=== PATIENT | male | born 1945 | race Caucasian/White ===

== ENCOUNTER 2022-04-20 13:15 | Day surgery (SDC) | payer MEDICARE, BC, SELFPAY ==
[2022-04-20] MEDS: TETRACAINE 0.5% OPHTH 1 DROP EYE-RIGHT ×2 (13:44→16:24)
[2022-04-20] MEDS: KETOROLAC OPHTH 0.5% 1 DROP EYE-RIGHT ×3 (13:45→14:00)
[2022-04-20] MEDS: SODIUM CHLORIDE 0.9 % (FLUSH) 10 ML SYRINGE IVF (13:55)
[2022-04-20 14:02] VITALS: BP 122/74; PULSE 76; RESP 16; TEMP 36.8; O2SAT 96
[2022-04-20 14:09] VITALS: BMI 32.3
--- NOTE | 2022-04-20 15:02 | W.ANESCHARGE ---
Anesthesia Charges Start Date/Time Anesthesia Start Date: 04/20/22 Stop Date/Time Anesthesia Stop Date: 04/20/22 Summary Emergency: No Extremes of Age: Over 68-CPT [id number]
[2022-04-20] MEDS: BALANCED SALT IRRIG SOLN 15 ML EYE-RIGHT (16:24)
[2022-04-20] MEDS: BRIMONIDINE TARTRATE 0.2% OPHTH 1 DROP EYE-RIGHT (16:24)
--- NOTE | 2022-04-20 16:41 | PM.PROC ---
Procedure Note Date Seen: 04/20/22 Will [facility] bill your pro fee for this procedure?: No Procedure Description: Right pupil dilated 1% Mydriacyl 2.5% phenylephrine Vigamox Ocufen 2 OR time-out identified patient identified a procedure identify implant sterile prep and drape lid speculum 12:00. paracentesis local injected viscoelastic injected I entered temporally keratome malyugan ring placed 3 mm pupil continuous tear capsulotomy hydro dissected local the emulsified in capsule cortex removed implant 24.0 ring removed viscoelastic removed incision hydrated topical brimonidine secure discharged Surgeon: Hill Doll MD
[2022-04-20 16:45] VITALS: BP 144/95; PULSE 64; RESP 16; TEMP 36.7; O2SAT 94
--- NOTE | 2022-04-20 16:45 | W.ANESCHARGE ---
Anesthesia Charges Start Date/Time Anesthesia Start Date: 04/20/22 Anesthesia Start Time: 16:14 Stop Date/Time Anesthesia Stop Date: 04/20/22 Anesthesia Stop Time: 16:45 Summary Emergency: No Extremes of Age: Over 68-CPT [id number]
== END 2022-04-20 17:07 | disposition home or self-care (01) ==
PROVIDERS: PCP Family Medicine; Visit Provider Ophthalmology
PROC: (CPT 66984; principal; 2022-04-20 14:30)
DX: H25.811 Combined forms of age-related cataract, right eye (principal)
CPT/HCPCS: 66984; 00142; 99100; A9270; J3010; S0020; V2632

== ENCOUNTER 2022-06-03 11:00 | Outpatient (RCR) | payer MEDICARE, BC, SELFPAY ==
[2022-02-11 10:03] LABS: Basophils Percent Auto 0.1 % (0.0-3.0); Eosinophils Percent Auto 0.3 % (0.0-7.0); Hemoglobin* 16.3 gm/dL (13.5-17.5); Immature Granulocytes Abs Auto 0.07 K/uL (0.00-0.30); Lymphocytes Percent Auto 87.5 % (20-44); Mean Corpuscular HGB Conc 33 gm/dL (32-36); Mean Corpuscular Hemoglobin 28 pg (26-34); Mean Corpuscular Volume 87 fL (80-100); Monocytes Percent Auto 1.9 % (0.0-11.0); Platelet Count* 100 K/uL (140-440); RDW Coefficient of Variation % 13.8 % (11.5-15.5); Red Blood Count 5.73 m/uL (4.30-5.90)
[2022-02-11 10:14] LABS: Albumin* 4.9 g/dL (3.3-5.0); Chloride* 104 mmol/L (96-114)
[2022-02-11 10:15] LABS: Potassium* 4.6 mmol/L (3.6-5.1); Sodium* 140 mmol/L (135-149)
[2022-02-11 10:17] LABS: Alkaline Phosphatase* 103 U/L (40-150); Aspartate Amino Transferase* 27 U/L (12-35); Bilirubin Total* 0.8 mg/dL (0.1-1.5); Carbon Dioxide* 25 mmol/L (20-32); Creatinine* 1.8 mg/dL (0.5-1.5); Estimated Glomerular Filt Rate 38 ml/min
[2022-02-11 10:18] LABS: Alanine Aminotransferase* 23 U/L (4-50); Blood Urea Nitrogen* 37 mg/dL (7-30); Glucose* 100 mg/dL (60-115); Lactate Dehydrogenase* 475 U/L (313-618)
[2022-02-11 11:24] LABS: Slide Review Reflex Yes; White Blood Count* 37.97 K/uL (4.50-11.00)
[2022-02-11 23:20] LABS: Slide Review Acceptable Review (Acceptable)
[2022-06-03 11:19] LABS: Basophils Percent Auto 0.1 % (0.0-3.0); Eosinophils Percent Auto 0.3 % (0.0-7.0); Hematocrit 50.4 % (37.0-53.0); Hemoglobin* 16.3 gm/dL (13.5-17.5); Immature Granulocytes Pct Auto 0.1 %; Lymphocytes Percent Auto 88.1 % (20-44); Mean Corpuscular HGB Conc 32 gm/dL (32-36); Mean Corpuscular Hemoglobin 29 pg (26-34); Mean Corpuscular Volume 89 fL (80-100); Monocytes Percent Auto 2.2 % (0.0-11.0); Neutrophils Percent Auto 9.2 % (42.0-72.0); Platelet Count* 101 K/uL (140-440); RDW Coefficient of Variation % 13.3 % (11.5-15.5); Red Blood Count 5.68 m/uL (4.30-5.90)
[2022-06-03 11:42] LABS: Slide Review Reflex Yes; White Blood Count* 42.24 K/uL (4.50-11.00)
[2022-06-03 11:43] LABS: Slide Review Acceptable Review (Acceptable)
[2022-06-03 12:10] LABS: Albumin* 4.8 g/dL (3.3-5.0); Chloride* 107 mmol/L (96-114)
[2022-06-03 12:11] LABS: Potassium* 4.3 mmol/L (3.6-5.1); Sodium* 142 mmol/L (135-149)
[2022-06-03 12:13] LABS: Aspartate Amino Transferase* 32 U/L (12-35); Bilirubin Total* 0.8 mg/dL (0.1-1.5); Carbon Dioxide* 27 mmol/L (20-32); Creatinine* 1.6 mg/dL (0.5-1.5); Estimated Glomerular Filt Rate 44 ml/min; Total Protein* 6.9 g/dL (6.0-8.3)
[2022-06-03 12:14] LABS: Alanine Aminotransferase* 27 U/L (4-50); Alkaline Phosphatase* 93 U/L (40-150); Blood Urea Nitrogen* 34 mg/dL (7-30); Calcium* 10.3 mg/dL (8.4-10.6); Glucose* 76 mg/dL (60-115); Lactate Dehydrogenase* 219 U/L (120-246)
--- NOTE | 2022-06-10 15:10 | ONC.NURNOTE ---
left cbc results on patients answering machine. left our number if he needs to make an apt or has any question.
== END 2022-08-10 23:59 | disposition home or self-care (01) ==
LOC: CCIC 11:00
PROVIDERS: PCP Family Medicine; Referring Provider Family Medicine; Visit Provider Internal Medicine Hematology & Oncology
DX: C91.10 Chronic lymphocytic leukemia of B-cell type not having achieved remission (principal)
CPT/HCPCS: 36415; 80053; 83615; 85025; 99212; 99214

== ENCOUNTER 2023-02-21 10:00 | Outpatient (RCR) | payer MEDICARE, BC, SELFPAY ==
[2022-08-29 11:26] LABS: Basophils Percent Auto 0.1 % (0.0-3.0); Eosinophils Percent Auto 0.3 % (0.0-7.0); Hematocrit 51.4 % (37.0-53.0); Hemoglobin* 16.6 gm/dL (13.5-17.5); Immature Granulocytes Pct Auto 0.1 %; Mean Corpuscular HGB Conc 32 gm/dL (32-36); Mean Corpuscular Hemoglobin 28 pg (26-34); Mean Corpuscular Volume 88 fL (80-100); Monocytes Percent Auto 1.9 % (0.0-11.0); Neutrophils Percent Auto 8.6 % (42.0-72.0); Platelet Count* 110 K/uL (140-440); RDW Coefficient of Variation % 13.6 % (11.5-15.5); Red Blood Count 5.84 m/uL (4.30-5.90)
[2022-08-29 11:43] LABS: Albumin* 4.8 g/dL (3.3-5.0)
[2022-08-29 11:44] LABS: Chloride* 105 mmol/L (96-114); Potassium* 4.6 mmol/L (3.6-5.1); Sodium* 140 mmol/L (135-149)
[2022-08-29 11:46] LABS: Aspartate Amino Transferase* 29 U/L (12-35); Carbon Dioxide* 27 mmol/L (20-32); Creatinine* 1.7 mg/dL (0.5-1.5); Estimated Glomerular Filt Rate 41 ml/min; Total Protein* 7.3 g/dL (6.0-8.3)
[2022-08-29 11:47] LABS: Alanine Aminotransferase* 28 U/L (4-50); Alkaline Phosphatase* 106 U/L (40-150); Blood Urea Nitrogen* 37 mg/dL (7-30); Glucose* 94 mg/dL (60-115); Lactate Dehydrogenase* 220 U/L (120-246)
[2022-08-29 11:48] LABS: White Blood Count* 45.29 K/uL (4.50-11.00)
[2022-08-29 14:01] LABS: Slide Review Reflex Yes
[2022-08-29 14:02] LABS: Slide Review Acceptable Review (Acceptable)
[2022-08-30 20:53] LABS: Kappa Qnt Free Light Chains 133.22 mg/L (3.30-19.40); Kappa-Lambda Qt FLC W/ Ratio 13.55 (0.26-1.65); Lambda Qnt Free Light Chains 9.83 mg/L (5.71-26.30)
[2022-09-07 18:24] LABS: Beta-2-Microglob Serum/Plasma 5.2 mg/L (<=3.0)
[2022-09-09 02:41] LABS: Albumin 4.41 g/dL (3.75-5.01); Alpha 1 Globulin 0.33 g/dL (0.19-0.46); Alpha 2 Globulin 0.62 g/dL (0.48-1.05); Total Protein, Serum 6.3 g/dL (6.3-8.2)
--- NOTE | 2022-10-25 15:05 | ONC.NURNOTE ---
New medication start teaching completed on 10/19/22 (late entry) discussed process of obtaining medication and options for copay support if needed reviewed new treatment binder and medication information- possible side effects, after hours management, administration RX will need to be signed by Dr Jensen and then faxed to [facility]
--- NOTE | 2022-10-25 15:08 | ONC.NURNOTE ---
Addendum entered by Glenis Gilliam RN 10/26/22 11:24: PA APPROVAL FOR DAMARIS CRUZ # [id number] 10/26/22-04/24/23 PA from Jayne Original Note: zanubrutinib new start screen writer phoned Haylee in follow up of RX faxed on 10/20/22 Traveling Operator was told that [facility] can not fill this medication and that the RX will need to be sent to [facility] or [id number] Unfortunately Haylee did not call this office with follow up of need to transfer RX Rx faxed to [facility]
--- NOTE | 2022-10-26 11:24 | ONC.NURNOTE ---
[facility] Copay for Brukinsa is $3268/month [facility] will be contacting Aj about possible financial qualification for copay librado program
--- NOTE | 2022-10-31 09:37 | ONC.NURNOTE ---
Message left last week and again today for patient to call about next steps prior to start of Brukinsa -enrollment in a copay assistance needed either through a librado, or through the line cook -EKG thru PCP -follow up lab apps needed -provider follow up -offer SS consult
--- NOTE | 2022-10-31 14:11 | ONC.NURNOTE ---
Enrolled in Leukemia[employer]ymphoma [employer] Copay Luc 10/02/22-11/01/23 $10,000
--- NOTE | 2022-11-01 12:02 | ONC.NURNOTE ---
Copay librado through [facility] paperwork completed, signed by Mikey and faxed to [facility] at [phone]
--- NOTE | 2022-11-03 14:48 | ONC.NURNOTE ---
EKG reviewed by Dr Jensen with recommendation for cardiology consult due to EKG changes from previous done in 2019 and 2015
--- NOTE | 2022-11-04 11:55 | ONC.NURNOTE ---
Lab and MD appts set up for new start zanubrutinib patient notified of need for cardiology consult to review noted EKG changes play writer will contact [facility] [place] discussed plan to taking zanubrutinib questions addressed discussed drug interactions with amoxicillin avoiding high dose supplements
--- NOTE | 2022-11-07 13:23 | ONC.NURNOTE ---
Cardiology Consult via [facility] Dr Scott Mccord 12/01/22 at 1:30 with 1:15 arrival [address] [place] [address] Records faxed to [phone] patient called with this appt information
[2022-11-08 11:45] LABS: Basophils Percent Auto 0.1 % (0.0-3.0); Eosinophils Percent Auto 0.4 % (0.0-7.0); Hematocrit 45.5 % (37.0-53.0); Hemoglobin* 14.8 gm/dL (13.5-17.5); Immature Granulocytes Pct Auto 0.1 %; Lymphocytes Percent Auto 89.7 % (20-44); Mean Corpuscular HGB Conc 33 gm/dL (32-36); Mean Corpuscular Hemoglobin 29 pg (26-34); Mean Corpuscular Volume 88 fL (80-100); Monocytes Percent Auto 1.5 % (0.0-11.0); Neutrophils Percent Auto 8.2 % (42.0-72.0); Platelet Count* 101 K/uL (140-440); RDW Coefficient of Variation % 13.4 % (11.5-15.5); Red Blood Count 5.17 m/uL (4.30-5.90)
[2022-11-08 11:57] LABS: Albumin* 4.3 g/dL (3.3-5.0); Chloride* 106 mmol/L (96-114)
[2022-11-08 11:58] LABS: Potassium* 4.3 mmol/L (3.6-5.1); Sodium* 136 mmol/L (135-149)
[2022-11-08 12:00] LABS: Alkaline Phosphatase* 87 U/L (40-150); Aspartate Amino Transferase* 31 U/L (12-35); Bilirubin Total* 0.8 mg/dL (0.1-1.5); Blood Urea Nitrogen* 41 mg/dL (7-30); Carbon Dioxide* 28 mmol/L (20-32); Creatinine* 1.9 mg/dL (0.5-1.5); Estimated Glomerular Filt Rate 35 ml/min; Total Protein* 6.4 g/dL (6.0-8.3)
[2022-11-08 12:01] LABS: Alanine Aminotransferase* 20 U/L (4-50); Calcium* 10.2 mg/dL (8.4-10.6); Glucose* 90 mg/dL (60-115)
[2022-11-08 12:02] LABS: Slide Review Reflex Yes; White Blood Count* 56.84 K/uL (4.50-11.00)
[2022-11-08 12:03] LABS: Slide Review Acceptable Review (Acceptable)
--- NOTE | 2022-11-23 13:17 | ONC.NURNOTE ---
Reports sinus drainage and productive cough with clear phlegm, enough that he sleeps on multiple pillows and then is up around 4 am due to cough he reports increasing fatigue will report these symptoms to Dr Mikey Rocha is using mucinex for the congestion expert medical writer checked for any drug interaction per Aj's request Continues on Zanubrutinib BID RTC 12/15/22
[2022-11-23 13:20] LABS: Eosinophils Percent Auto 0.2 % (0.0-7.0); Hematocrit 50.4 % (37.0-53.0); Hemoglobin* 15.7 gm/dL (13.5-17.5); Immature Granulocytes Pct Auto 0.1 %; Lymphocytes Percent Auto 94.8 % (20-44); Mean Corpuscular HGB Conc 31 gm/dL (32-36); Mean Corpuscular Hemoglobin 28 pg (26-34); Mean Corpuscular Volume 90 fL (80-100); Monocytes Percent Auto 0.6 % (0.0-11.0); Neutrophils Percent Auto 4.3 % (42.0-72.0); Platelet Count* 128 K/uL (140-440); RDW Coefficient of Variation % 15.2 % (11.5-15.5); Red Blood Count 5.58 m/uL (4.30-5.90)
[2022-11-23 13:34] LABS: Albumin* 4.9 g/dL (3.3-5.0)
[2022-11-23 13:35] LABS: Chloride* 105 mmol/L (96-114); Potassium* 4.4 mmol/L (3.6-5.1); Sodium* 140 mmol/L (135-149)
[2022-11-23 13:37] LABS: Alkaline Phosphatase* 90 U/L (40-150); Aspartate Amino Transferase* 25 U/L (12-35); Bilirubin Total* 0.9 mg/dL (0.1-1.5); Blood Urea Nitrogen* 36 mg/dL (7-30); Carbon Dioxide* 23 mmol/L (20-32); Creatinine* 1.7 mg/dL (0.5-1.5); Estimated Glomerular Filt Rate 41 ml/min; Total Protein* 7.4 g/dL (6.0-8.3)
[2022-11-23 13:38] LABS: Alanine Aminotransferase* 20 U/L (4-50); Calcium* 10.4 mg/dL (8.4-10.6); Glucose* 106 mg/dL (60-115); Lactate Dehydrogenase* 204 U/L (120-246)
[2022-11-23 13:49] LABS: Slide Review Reflex Yes; White Blood Count* 130.68 K/uL (4.50-11.00)
[2022-11-23 13:52] LABS: Slide Review Acceptable Review (Acceptable)
--- NOTE | 2022-11-25 09:46 | ONC.NURNOTE ---
Lab results reviewed by Dr Jensen-lymphocytosis not unexpected after starting TKI patient/ eassured that this is not a concerning change will continue Q 2 week lab RTC in 3 weeks
--- NOTE | 2022-12-07 09:40 | ONC.NURNOTE ---
Patient called to return navigator phone call from yesterday. No note left, so patient was told that he will be able to talk with her tomorrow when she is in. Patient has an appointment at 10:00 tomorrow for labs.
[2022-12-08 10:12] LABS: Eosinophils Percent Auto 0.2 % (0.0-7.0); Hematocrit 46.3 % (37.0-53.0); Hemoglobin* 14.4 gm/dL (13.5-17.5); Immature Granulocytes Pct Auto 0.1 %; Lymphocytes Percent Auto 93.5 % (20-44); Mean Corpuscular HGB Conc 31 gm/dL (32-36); Mean Corpuscular Hemoglobin 29 pg (26-34); Mean Corpuscular Volume 92 fL (80-100); Monocytes Percent Auto 0.6 % (0.0-11.0); Neutrophils Percent Auto 5.6 % (42.0-72.0); Platelet Count* 141 K/uL (140-440); RDW Coefficient of Variation % 15.6 % (11.5-15.5); Red Blood Count 5.06 m/uL (4.30-5.90)
[2022-12-08 10:39] LABS: White Blood Count* 130.37 K/uL (4.50-11.00)
[2022-12-08 10:40] LABS: Slide Review Reflex Yes
[2022-12-08 10:42] LABS: Slide Review Acceptable Review (Acceptable)
[2022-12-21 10:51] LABS: Eosinophils Percent Auto 0.3 % (0.0-7.0); Hemoglobin* 13.8 gm/dL (13.5-17.5); Immature Granulocytes Pct Auto 0.1 %; Lymphocytes Percent Auto 92.4 % (20-44); Mean Corpuscular HGB Conc 31 gm/dL (32-36); Mean Corpuscular Hemoglobin 29 pg (26-34); Mean Corpuscular Volume 91 fL (80-100); Monocytes Percent Auto 0.9 % (0.0-11.0); Neutrophils Percent Auto 6.3 % (42.0-72.0); Platelet Count* 134 K/uL (140-440); RDW Coefficient of Variation % 15.2 % (11.5-15.5); Red Blood Count 4.85 m/uL (4.30-5.90)
[2022-12-21 11:01] LABS: Albumin* 4.2 g/dL (3.3-5.0); Chloride* 108 mmol/L (96-114); Sodium* 137 mmol/L (135-149)
[2022-12-21 11:03] LABS: Bilirubin Total* 0.7 mg/dL (0.1-1.5); Creatinine* 1.6 mg/dL (0.5-1.5); Estimated Glomerular Filt Rate 44 ml/min
[2022-12-21 11:04] LABS: Alanine Aminotransferase* 22 U/L (4-50); Alkaline Phosphatase* 73 U/L (40-150); Aspartate Amino Transferase* 28 U/L (12-35); Blood Urea Nitrogen* 35 mg/dL (7-30); Calcium* 9.6 mg/dL (8.4-10.6); Carbon Dioxide* 20 mmol/L (20-32); Glucose* 114 mg/dL (60-115); Total Protein* 6.2 g/dL (6.0-8.3)
[2022-12-21 11:27] LABS: Slide Review Reflex Yes; White Blood Count* 92.83 K/uL (4.50-11.00)
[2022-12-21 11:37] LABS: Slide Review Acceptable Review (Acceptable)
[2022-12-24 11:32] LABS: Albumin 4.07 g/dL (3.75-5.01); Alpha 2 Globulin 0.63 g/dL (0.48-1.05); Immunofixation IFE Done; Immunoglobulin A 16 mg/dL (68-408); Immunoglobulin G 240 mg/dL (768-1632); Immunoglobulin M 20 mg/dL (35-263); Kappa Qnt Free Light Chains 41.73 mg/L (3.30-19.40); Kappa/Lambda Light Chain Ratio 3.67 (0.26-1.65); Lambda Qnt Free Light Chains 11.38 mg/L (5.71-26.30); Total Protein, Serum 5.9 g/dL (6.3-8.2)
[2023-01-04 10:29] LABS: Eosinophils Percent Auto 0.2 % (0.0-7.0); Hematocrit 46.1 % (37.0-53.0); Hemoglobin* 14.6 gm/dL (13.5-17.5); Immature Granulocytes Pct Auto 0.1 %; Lymphocytes Percent Auto 92.8 % (20-44); Mean Corpuscular HGB Conc 32 gm/dL (32-36); Mean Corpuscular Hemoglobin 29 pg (26-34); Mean Corpuscular Volume 90 fL (80-100); Neutrophils Percent Auto 5.9 % (42.0-72.0); Platelet Count* 153 K/uL (140-440); Red Blood Count 5.12 m/uL (4.30-5.90)
[2023-01-04 10:40] LABS: Albumin* 4.6 g/dL (3.3-5.0); Chloride* 102 mmol/L (96-114); Potassium* 4.4 mmol/L (3.6-5.1); Sodium* 138 mmol/L (135-149)
[2023-01-04 10:42] LABS: Creatinine* 1.8 mg/dL (0.5-1.5); Estimated Glomerular Filt Rate 38 ml/min
[2023-01-04 10:43] LABS: Alanine Aminotransferase* 22 U/L (4-50); Alkaline Phosphatase* 82 U/L (40-150); Aspartate Amino Transferase* 27 U/L (12-35); Blood Urea Nitrogen* 40 mg/dL (7-30); Calcium* 10.4 mg/dL (8.4-10.6); Carbon Dioxide* 27 mmol/L (20-32); Glucose* 109 mg/dL (60-115); Total Protein* 6.8 g/dL (6.0-8.3)
[2023-01-04 11:09] LABS: White Blood Count* 78.74 K/uL (4.50-11.00)
[2023-01-04 11:10] LABS: Slide Review Reflex Yes
[2023-01-04 11:11] LABS: Slide Review Acceptable Review (Acceptable)
--- NOTE | 2023-01-04 15:28 | ONC.NURNOTE ---
Lab results reviewed by Dr Jensen and called to Iris Rocha reports sleeping better at night, cough has improved reports lots of fatigue and that Aj takes a 3 hour nap during the day
[2023-01-19 08:52] LABS: Eosinophils Percent Auto 0.4 % (0.0-7.0); Hematocrit 47.3 % (37.0-53.0); Hemoglobin* 14.7 gm/dL (13.5-17.5); Immature Granulocytes Pct Auto 0.2 %; Lymphocytes Percent Auto 87.9 % (20-44); Mean Corpuscular HGB Conc 31 gm/dL (32-36); Mean Corpuscular Hemoglobin 29 pg (26-34); Mean Corpuscular Volume 92 fL (80-100); Monocytes Percent Auto 1.4 % (0.0-11.0); Neutrophils Percent Auto 10.1 % (42.0-72.0); Platelet Count* 147 K/uL (140-440); RDW Coefficient of Variation % 14.4 % (11.5-15.5); Red Blood Count 5.13 m/uL (4.30-5.90)
[2023-01-19 09:09] LABS: Albumin* 4.5 g/dL (3.3-5.0); Chloride* 104 mmol/L (96-114)
[2023-01-19 09:10] LABS: Potassium* 4.6 mmol/L (3.6-5.1); Sodium* 139 mmol/L (135-149)
[2023-01-19 09:12] LABS: Alkaline Phosphatase* 86 U/L (40-150); Anion Gap 9 mEq/L (7-15); Aspartate Amino Transferase* 27 U/L (12-35); Bilirubin Total* 0.8 mg/dL (0.1-1.5); Blood Urea Nitrogen* 46 mg/dL (7-30); Carbon Dioxide* 26 mmol/L (20-32); Creatinine* 1.6 mg/dL (0.5-1.5); Estimated Glomerular Filt Rate 44 ml/min; Glucose* 100 mg/dL (60-115); Total Protein* 6.9 g/dL (6.0-8.3)
[2023-01-19 09:13] LABS: Alanine Aminotransferase* 22 U/L (4-50); Calcium* 10.9 mg/dL (8.4-10.6); Lactate Dehydrogenase* 219 U/L (120-246)
[2023-01-19 09:41] LABS: Slide Review Reflex Yes; White Blood Count* 68.45 K/uL (4.50-11.00)
[2023-01-19 09:53] LABS: Slide Review Acceptable Review (Acceptable)
--- NOTE | 2023-01-20 10:38 | ONC.NURNOTE ---
Calcium 10.9 reviewed with alex following plan discussed with Aj come in early on appt day for repeat lab stay well hydrated- 8-10 glasses of water/juice avoid dairy this weekend, no tums, or calcium supplements-Aj states that he is not currently taking oral calcium walk and stay active denies constipation has been making protein shakes with yogurt and will take out the yogurt
[2023-01-20 16:59] LABS: Kappa Qnt Free Light Chains 30.96 mg/L (3.30-19.40); Kappa-Lambda Qt FLC W/ Ratio 2.78 (0.26-1.65); Lambda Qnt Free Light Chains 11.12 mg/L (5.71-26.30)
[2023-01-26 08:14] LABS: Ionized Calcium* 1.21 mmol/L (1.11-1.30)
[2023-01-26 08:32] LABS: Calcium* 10.1 mg/dL (8.4-10.6); Creatinine* 1.8 mg/dL (0.5-1.5); Estimated Glomerular Filt Rate 38 ml/min
[2023-02-21 10:09] LABS: Basophils Percent Auto 0.1 % (0.0-3.0); Eosinophils Percent Auto 0.4 % (0.0-7.0); Hematocrit 45.4 % (37.0-53.0); Hemoglobin* 14.8 gm/dL (13.5-17.5); Immature Granulocytes Pct Auto 0.2 %; Lymphocytes Percent Auto 84.1 % (20-44); Mean Corpuscular HGB Conc 33 gm/dL (32-36); Mean Corpuscular Hemoglobin 29 pg (26-34); Mean Corpuscular Volume 90 fL (80-100); Monocytes Percent Auto 1.5 % (0.0-11.0); Neutrophils Percent Auto 13.7 % (42.0-72.0); Platelet Count* 130 K/uL (140-440); RDW Coefficient of Variation % 13.8 % (11.5-15.5); Red Blood Count 5.03 m/uL (4.30-5.90)
[2023-02-21 10:24] LABS: Albumin* 4.4 g/dL (3.3-5.0); Chloride* 104 mmol/L (96-114)
[2023-02-21 10:25] LABS: Potassium* 4.3 mmol/L (3.6-5.1); Sodium* 138 mmol/L (135-149)
[2023-02-21 10:27] LABS: Alanine Aminotransferase* 22 U/L (4-50); Alkaline Phosphatase* 80 U/L (40-150); Anion Gap 10 mEq/L (7-15); Aspartate Amino Transferase* 47 U/L (12-35); Bilirubin Total* 0.9 mg/dL (0.1-1.5); Blood Urea Nitrogen* 40 mg/dL (7-30); Carbon Dioxide* 24 mmol/L (20-32); Creatinine* 1.8 mg/dL (0.5-1.5); Estimated Glomerular Filt Rate 38 ml/min; Glucose* 85 mg/dL (60-115); Total Protein* 6.6 g/dL (6.0-8.3)
[2023-02-21 10:28] LABS: Calcium* 9.8 mg/dL (8.4-10.6)
[2023-02-21 10:35] LABS: White Blood Count* 38.41 K/uL (4.50-11.00)
[2023-02-21 10:36] LABS: Slide Review Acceptable Review (Acceptable); Slide Review Reflex Yes
== END 2023-02-25 23:59 | disposition home or self-care (01) ==
LOC: CCIC 10:00
PROVIDERS: Clinical Nurse Specialist; PCP Family Medicine; Referring Provider Family Medicine; Visit Provider Internal Medicine Hematology & Oncology
DX: C91.10 Chronic lymphocytic leukemia of B-cell type not having achieved remission (principal)
CPT/HCPCS: 36415; 80053; 82232; 82310; 82330; 82565; 82784; 83520; 83615; 84155; 84165; 85025; 86334; 99212; 99213; 99214; 99215

== ENCOUNTER 2023-07-31 11:03 | Emergency (ER) | payer MEDICARE, BC, SELFPAY ==
[2023-07-31] VITALS (10 sets, daily range): BP systolic 123; BP diastolic 80; PULSE 83–109; RESP 16; TEMP 37.1; O2SAT 91–97; BMI 27.8
--- NOTE | 2023-07-31 11:08 | ED_ITS ---
HPI - General Adult General Time Seen by Provider: 11:10 Date Seen: 07/31/23 Chief complaint: Cough Stated complaint: Pneumonia Time Seen by Provider: 07/31/23 11:05 Source: patient, RN notes reviewed and old records reviewed Mode of arrival: ambulatory Limitations: no limitations History of Present Illness HPI narrative: 77-year-old male who comes in today with a cough and fatigue. Patient has had ongoing cough for quite a while related to chemotherapy but increased coughing in the last 4 days along with chills, some shortness of breath, and fatigue. Denies fever, nausea, vomiting, chest pain, diarrhea. Patient was on Augmentin at the beginning of last month. Related Data Home Medications Medication Instructions Recorded Confirmed lisinopril 10 mg tablet 10 mg PO QDAY 02/22/22 07/31/23 zinc gluconate 50 mg tablet 50 mg PO DAILY 04/19/22 07/31/23 atorvastatin 20 mg tablet 20 mg PO QHS 09/06/22 07/31/23 glucosamine-chondroitin 500 mg-400 1 cap PO QDAY 09/06/22 06/28/23 mg capsule Previous Rx's Medication Instructions Recorded amoxicillin 500 mg capsule 2,000 mg (4 x 500 mg) PO ONCE #4 01/06/23 caps codeine 10 mg-guaifenesin 100 mg/5 5 - 10 ml PO BID PRN cough #120 mL 06/26/23 mL oral liquid (Virtussin AC) zanubrutinib 80 mg capsule 80 mg PO QDAY #60 caps 06/28/23 albuterol sulfate 90 mcg/actuation 2 puff inhalation Q4H PRN 07/31/23 aerosol inhaler shortness of breath or wheezing #8.5 grams levofloxacin 750 mg tablet 750 mg PO DAILY 5 days #5 tabs 07/31/23 prednisone 20 mg tablet 20 mg PO BID #10 tabs 07/31/23 Allergies Allergy/AdvReac Type Severity Reaction Status Date / Time No Known Drug Allergies Allergy Verified 07/31/23 11:17 [facility] Medical History (Updated 07/31/23 @ 14:00 by Mark Gallegos MD) Stage 3b chronic kidney disease ?N18.32 - Chronic kidney disease, stage 3b (ICD-10) Essential hypertension ?I10 - Essential (primary) hypertension (ICD-10) Pneumonia ?J18.9 - Pneumonia, unspecified organism (ICD-10) CLL (chronic lymphocytic leukemia) (~2003) ?C91.10 - Chronic lymphocytic leukemia of B-cell type not having achieved remission (ICD-10) Surgical History (Updated 04/19/22 @ 10:07 by Patricia Nunez RN) Hx of total hip arthroplasty ?Z96.649 - Presence of unspecified artificial hip joint (ICD-10) Hx of colonoscopy ?Z98.890 - Other specified postprocedural states (ICD-10) Social History Smoking Status: Former smoker Exam Narrative: Exam Narrative: General: Well-developed and well-nourished, no acute distress Head: Atraumatic and normocephalic Eyes: Pupils are equal reactive, extraocular motions intact, conjunctiva clear ENT: External nose and ears are normal, posterior pharynx without erythema or exudate Neck: No midline cervical tenderness, full spontaneous range of motion the neck, trachea midline, no adenopathy Heart: Tachycardic but regular Lungs: Crackles in the right base, expiratory wheezes Abdomen: Soft, nontender, nondistended with active bowel sounds Musculoskeletal: No tenderness, deformity, or edema Neurologic: Awake, alert, and oriented x3, no gross focal neurologic deficits, cranial nerves intact as tested Psych: Mood and affect are appropriate Skin: No rashes Const: Vital Signs, click to edit/add: Vital Signs - 24 hr 07/31/23 11:18 07/31/23 11:41 07/31/23 11:45 Temperature 98.8 F Pulse Rate 95 90 Pulse Rate [Pulse Oximeter] 102 H Respiratory Rate 16 Blood Pressure [Ri ght Upper Arm] 123/80 Pulse Oximetry 91 92 92 Oxygen Delivery Me od Room Air 07/31/23 12:00 07/31/23 12:15 07/31/23 12:30 Temperature Pulse Rate 94 93 95 Pulse Rate [Pulse Oximeter] Respiratory Rate Blood Pressure [Ri ght Upper Arm] Pulse Oximetry 92 91 93 Oxygen Delivery Ut thod 07/31/23 12:45 07/31/23 13:00 07/31/23 13:30 Temperature Pulse Rate 109 H 83 89 Pulse Rate [Pulse Oximeter] Respiratory Rate Blood Pressure [Ri ght Upper Arm] Pulse Oximetry 97 93 95 [facility] 07/31/23 14:07 Temperature Pulse Rate 89 Pulse Rate [Pulse Oximeter] Respiratory Rate Blood Pressure [Ri ght Upper Arm] Pulse Oximetry 92 Oxygen Delivery Me thod Course Course ED Course: Patient seen examined, reviewed most recent oncology follow-up note from June 30 mom patient was seen for routine visit for CLL, he was seen in follow-up for elevated white blood cell count in the setting of pneumonia which was treated by [facility], currently on zanubrutinib twice a day, at that time was started on Augmentin. Patient presents today with increased cough and fatigue for the last couple of days, also has some shortness of breath and chills. Denies fever, , nausea, vomiting, diarrhea. No ill contacts. Does have some crackles on lung exam, no hypoxia, borderline tachycardia. Likely this represents infectious etiology but cannot exclude pulmonary edema or pulmonary embolism given history of malignancy. Labs and CT PE study are ordered along with DuoNeb. Reevaluation(s) Time of Reevaluation #1: 13:13 Reevaluation #1: Labs ordered and independently interpreted by me with leukocytosis although this is improving, hemoglobin normal, basic panel with elevated creatinine but baseline for patient, no other acute abnormalities, BNP is normal, respiratory panel negative. CT PE study is pending. Time of Reevaluation #2: 13:50 Reevaluation #2: CT PE study does not demonstrate pulmonary embolism, does demonstrate central bronchial thickening with mucoid impaction, also atelectasis with fibrosis and some pulmonary edema verses inflammatory changes, possible developing focal infiltrate of the left lower lobe. Patient will be started on prednisone, albuterol inhaler, and Levaquin. He does note that he had some improvement with the DuoNeb. Time of Reevaluation #3: 14:10 Reevaluation #3: Called [place] per patient request to discussed care with pulmonology. Unfortunately, they will not allow me to speak to a pulmonologists. Information for outpatient follow-up was given for the patient any should call for follow-up in 1-2 weeks. Patient was tachycardic on initial arrival, however heart rate now in the 80s, after fluids and DuoNeb, oxygen saturation remains above 92%, consider admission but patient is stable for discharge. Vital Signs Vital signs: Initial Vital Signs Temperature 98.8 F 07/31/23 11:18 Temperature Source Temporal Artery Scan 07/31/23 11:18 Pulse Rate 102 H 03/11/24 11:18 Pulse Rhythm Regular 07/31/23 11:18 Pulse Strength 3+ Normal 07/31/23 11:18 Respiratory Rate 16 07/31/23 11:18 Blood Pressure 123/80 07/31/23 11:18 Blood Pressure Mean 94 07/31/23 11:18 Blood Pressure Position Sitting 07/31/23 11:18 Pulse Oximetry 91 07/31/23 11:18 Oxygen Delivery Method Room Air 07/31/23 11:18 Vital Signs Temperature 98.8 F 07/31/23 11:18 Pulse Rate 102 H 07/31/23 11:18 Respiratory Rate 16 07/31/23 11:18 Blood Pressure 123/80 07/31/23 11:18 Pulse Oximetry 91 07/31/23 11:18 Oxygen Delivery Method Room Air 07/31/23 11:18 Temperature 98.8 F 07/31/23 11:18 Pulse Rate 89 07/31/23 14:07 Respiratory Rate 16 07/31/23 11:18 Blood Pressure 123/80 07/31/23 11:18 Pulse Oximetry 92 07/31/23 14:07 Oxygen Delivery Method Room Air 07/31/23 11:18 Medications Administered Medications: Discontinued Medications Generic Name Dose Route Start Last Admin Trade Name Freq PRN Reason Stop Dose Admin Albuterol/Ipratropium 1 neb 07/31/23 12:00 07/31/23 12:38 Iprat-Albut 0.5-2.5 Mg/3 Ml Neb IH 07/31/23 12:01 1 neb ONCE ONE Administration Sodium Chloride 1,000 mls @ 1,000 mls/hr 07/31/23 12:00 07/31/23 13:18 0.9 % Sodium Chloride 1000 Ml IV 07/31/23 12:59 Infused .Q1H CORINNA Infusion Medical Decision Making Lab Data Labs: Lab Results 07/31/23 07/31/23 Range/Units 11:20 12:30 WBC 15.44 H (4.50-11.00) K/uL RBC 5.26 (4.30-5.90) m/uL Hgb 14.8 (13.5-17.5) gm/dL Hct 45.5 (37.0-53.0) % MCV 87 (80-100) fL MCH 28 (26-34) pg MCHC 33 (32-36) gm/dL RDW Coeff of Karolina 13.6 (11.5-15.5) % Plt Count 163 (140-440) K/uL Neut % (Auto) 54.1 (42.0-72.0) % Lymph % (Auto) 35.9 (20-44) % [place] % (Auto) 8.9 (0.0-11.0) % Eos % (Auto) 0.6 (0.0-7.0) % Baso % (Auto) 0.2 (0.0-3.0) % Neut # (Auto) 8.40 H (1.7-7.0) K/uL Lymph # (Auto) 5.50 H (0.90-2.90) K/uL [place] # (Auto) 1.40 H (0.00-0.90) K/UL Eos # (Auto) 0.10 (0.00-0.50) K/uL Baso # (Auto) 0.00 (0.00-0.30) K/uL Abs Immat Gran (auto) 0.00 (0.00-0.30) K/uL Imm/Tot Granulo (auto) 0.3 % Sodium 137 (135-149) mmol/L Potassium 4.6 (3.6-5.1) mmol/L Chloride 107 (96-114) mmol/L Carbon Dioxide 24 (20-32) mmol/L Anion Gap 6 L (7-15) mEq/L BUN 44 H (7-30) mg/dL Creatinine 1.7 H (0.5-1.5) mg/dL Estimated Creat Clear 38.67 Estimated GFR 41 ml/min Glucose 112 (60-115) mg/dL Calcium 10.2 (8.4-10.6) mg/dL Magnesium 2.2 (1.5-2.6) mg/dL NT-Pro-B Natriuret Pep 64 pg/mL SARS-CoV-2 (PCR) Negative SARS-CoV-2 (Negative) Influenza Type A (PCR) Negative PCR FLU A (Negative) Influenza Type B (PCR) Negative PCR FLU B (Negative) RSV (PCR) Negative PCR RSV (Negative) Discharge Plan Discharge Clinical Impression: Mucus plugging of bronchi, CLL (chronic lymphocytic leukemia), Cough, Bronchitis Patient Disposition: Home, Self-Care Condition: Stable Instructions: Acute Bronchitis (ED) Additional Instructions: Take prednisone as prescribed Use inhaler 2 puffs every 2 hours while awake for 24 hours, then 2 puffs every 3 hours while awake for 24 hours, then 2 puffs every 4 hours while awake for 24 hours Take prednisone and Levaquin as prescribed Follow-up with [place] pulmonology in 1-2 weeks, call for an appointment [phone] Follow-up with your primary care doctor in 3-5 days Activity Level: No Restrictions Discharge Diet: Regular Prescriptions: New levofloxacin 750 mg tablet 750 mg PO DAILY 5 Days Qty: 5 0RF prednisone 20 mg tablet 20 mg PO BID Qty: 10 0RF albuterol sulfate 90 mcg/actuation HFA aerosol inhaler 2 puff inhalation Q4H PRN (Reason: shortness of breath or wheezing) Qty: 8.5 0RF No Action lisinopril 10 mg tablet 10 mg PO QDAY atorvastatin 20 mg tablet 20 mg PO QHS zanubrutinib 80 mg capsule 80 mg PO QDAY Qty: 60 1RF zinc gluconate 50 mg tablet 50 mg PO DAILY glucosamine-chondroitin 500-400 mg capsule 1 cap PO QDAY Rx Instructions: give with meal/snack amoxicillin 500 mg capsule 2,000 mg PO ONCE Qty: 4 3RF Rx Instructions: Take 2000mg one hour prior to dental appointment. codeine-guaifenesin [Virtussin AC] 10-100 mg/5 mL liquid 5 - 10 ml PO BID PRN (Reason: cough) Qty: 120 0RF Follow Up/Referrals: Torey Rangel MD [Primary Care Provider] - Stand Alone Forms: [employer] Info Instructions
--- NOTE | 2023-07-31 12:00 | CT_ITS ---
Patient: RUBY GOINS Facility:?[facility] Patient ID:?[id number] Site Patient ID:?[id number]. Site :?[id number] Study:?CT-Chest PE 95CC ISOVUE 370-07/31/2023 1:30:55 PM Ordering Physician:FATIMAH Final Report: Indication: Cough, dyspnea Technique: Volumetric multidetector CT images of the chest were obtained after the administration of IV contrast. 95 cc Isovue 370 low osmolar intravenous contrast Comparison: None available. Findings: The thoracic inlet and thyroid gland are unremarkable. The thoracic aorta is nonaneurysmal. There is no central filling defect to suggest pulmonary embolism. There are enlarged mediastinal and hilar lymph nodes. There is no axillary adenopathy. There is extensive central bronchial thickening with mucoid impaction of the lower greater than upper lobes. There is basilar atelectasis with honeycomb fibrosis in the peripheral inferior and lower lobes with mildly increased interstitial markings likely representing superimposed pulmonary edema and/or inflammatory changes. Minimal consolidation in the left lower lobe is appreciated which may represent developing focal infiltrate. There is no pneumothorax or pleural effusion. There are multiple old right-sided rib deformities. The bony thorax otherwise grossly intact. Cystic changes of the kidneys are appreciated with moderate stool seen throughout the colon. Degenerative changes of the thoracic spine with diffuse flowing anterior osteophytosis is appreciated consistent with DISH. There is no significant spondylolisthesis or displaced fracture. Impression: Moderate central bronchial thickening with mucoid impaction of the lower lobe bronchi. Reactive mediastinal and hilar lymph nodes are appreciated with increased interstitial markings in the inferior upper and peripheral lower lobes likely representing honeycomb fibrosis with superimposed inflammatory changes or edema. Minimal nodular airspace opacity in the left lower lobe is appreciated which may represent developing infiltrate. No evidence of pulmonary embolus. Please note that all CT scans at this facility use dose modulation, iterative reconstruction, and/or weight-based dosing when appropriate to reduce radiation dose to as low as reasonably achievable. Dictated by Andrea Acosta MD @ 07/31/2023 1:43:21 PM Signed by:?Andrea Acosta MD @07/31/2023 1:43:21 PM (Electronic Signature)
[2023-07-31 12:09] LABS: PCR FLU A Negative PCR FLU A (Negative); PCR FLU B Negative PCR FLU B (Negative); PCR RSV Negative PCR RSV (Negative); SARS PCR* Negative SARS-CoV-2 (Negative)
[2023-07-31] MEDS: 0.9 % SODIUM CHLORIDE 1000 ml 1,000 ML IV (12:38)
[2023-07-31] MEDS: IPRAT-ALBUT 0.5-2.5 MG/3 ML NEB 1 NEB IH (12:38)
[2023-07-31 12:39] LABS: Basophils Percent Auto 0.2 % (0.0-3.0); Eosinophils Percent Auto 0.6 % (0.0-7.0); Hematocrit 45.5 % (37.0-53.0); Hemoglobin* 14.8 gm/dL (13.5-17.5); Immature Granulocytes Pct Auto 0.3 %; Lymphocytes Percent Auto 35.9 % (20-44); Mean Corpuscular HGB Conc 33 gm/dL (32-36); Mean Corpuscular Hemoglobin 28 pg (26-34); Mean Corpuscular Volume 87 fL (80-100); Monocytes Percent Auto 8.9 % (0.0-11.0); Neutrophils Percent Auto 54.1 % (42.0-72.0); Platelet Count* 163 K/uL (140-440); RDW Coefficient of Variation % 13.6 % (11.5-15.5); Red Blood Count 5.26 m/uL (4.30-5.90); White Blood Count* 15.44 K/uL (4.50-11.00)
[2023-07-31 12:42] LABS: Slide Review Reflex No
[2023-07-31 12:53] LABS: Chloride* 107 mmol/L (96-114); Potassium* 4.6 mmol/L (3.6-5.1); Sodium* 137 mmol/L (135-149)
[2023-07-31 12:55] LABS: Creatinine* 1.7 mg/dL (0.5-1.5); Est. Creatinine Clearance* 38.67; Estimated Glomerular Filt Rate 41 ml/min; Magnesium* 2.2 mg/dL (1.5-2.6)
[2023-07-31 12:56] LABS: Anion Gap 6 mEq/L (7-15); Blood Urea Nitrogen* 44 mg/dL (7-30); Calcium* 10.2 mg/dL (8.4-10.6); Carbon Dioxide* 24 mmol/L (20-32); Glucose* 112 mg/dL (60-115)
[2023-07-31 13:07] LABS: NT Pro B Type NatriureticPept* 64 pg/mL
--- NOTE | 2023-07-31 15:31 | ONC.NURNOTE ---
Patient phoned with question about holding Brukinsa while being treated with prednisone and levofloxacin for bronchitis message left on voicemail: instructed to hold today's dose if not yet taken and will review with provider in the am, and call with follow up on Monday
== END 2023-07-31 14:23 | disposition home or self-care (01) ==
PROVIDERS: Emergency Provider Family Medicine; PCP Family Medicine
DX: R09.3 Abnormal sputum (principal); J40 Bronchitis, not specified as acute or chronic; C91.10 Chronic lymphocytic leukemia of B-cell type not having achieved remission
CPT/HCPCS: 36415; 71275; 80048; 83735; 83880; 85025; 87631; 94640; 99284; J7030; Q9967

== ENCOUNTER 2023-08-28 13:00 | Outpatient (RCR) | payer MEDICARE, BC, SELFPAY ==
[2023-03-21 10:22] LABS: Basophils Percent Auto 0.1 % (0.0-3.0); Eosinophils Percent Auto 0.6 % (0.0-7.0); Hemoglobin* 14.9 gm/dL (13.5-17.5); Immature Granulocytes Pct Auto 0.3 %; Lymphocytes Percent Auto 81.1 % (20-44); Mean Corpuscular HGB Conc 32 gm/dL (32-36); Mean Corpuscular Hemoglobin 29 pg (26-34); Mean Corpuscular Volume 91 fL (80-100); Monocytes Percent Auto 2.3 % (0.0-11.0); Neutrophils Percent Auto 15.6 % (42.0-72.0); RDW Coefficient of Variation % 13.7 % (11.5-15.5); Red Blood Count 5.14 m/uL (4.30-5.90)
[2023-03-21 10:45] LABS: White Blood Count* 30.88 K/uL (4.50-11.00)
[2023-03-21 10:46] LABS: Platelet Count* 144 K/uL (140-440); Slide Review Reflex No
[2023-03-21 10:57] LABS: Chloride* 98 mmol/L (96-114)
[2023-03-21 10:58] LABS: Albumin* 4.4 g/dL (3.3-5.0); Sodium* 139 mmol/L (135-149)
[2023-03-21 10:59] LABS: Potassium* 4.1 mmol/L (3.6-5.1)
[2023-03-21 11:01] LABS: Alanine Aminotransferase* 21 U/L (4-50); Alkaline Phosphatase* 77 U/L (40-150); Anion Gap 15 mEq/L (7-15); Aspartate Amino Transferase* 38 U/L (12-35); Bilirubin Total* 0.9 mg/dL (0.1-1.5); Blood Urea Nitrogen* 33 mg/dL (7-30); Calcium* 9.8 mg/dL (8.4-10.6); Carbon Dioxide* 26 mmol/L (20-32); Creatinine* 1.7 mg/dL (0.5-1.5); Estimated Glomerular Filt Rate 41 ml/min; Glucose* 105 mg/dL (60-115); Total Protein* 6.7 g/dL (6.0-8.3)
[2023-03-23 00:34] LABS: Immunoglobulin A 16 mg/dL (68-408); Immunoglobulin G 237 mg/dL (768-1632); Immunoglobulin M 24 mg/dL (35-263)
[2023-04-21 10:22] LABS: Basophils Percent Auto 0.1 % (0.0-3.0); Eosinophils Percent Auto 1.2 % (0.0-7.0); Hematocrit 44.7 % (37.0-53.0); Hemoglobin* 14.4 gm/dL (13.5-17.5); Immature Granulocytes Pct Auto 0.6 %; Lymphocytes Percent Auto 68.3 % (20-44); Mean Corpuscular HGB Conc 32 gm/dL (32-36); Mean Corpuscular Hemoglobin 29 pg (26-34); Mean Corpuscular Volume 90 fL (80-100); Monocytes Percent Auto 3.2 % (0.0-11.0); Neutrophils Percent Auto 26.6 % (42.0-72.0); Platelet Count* 152 K/uL (140-440); RDW Coefficient of Variation % 13.6 % (11.5-15.5); Red Blood Count 4.99 m/uL (4.30-5.90)
[2023-04-21 10:34] LABS: Albumin* 4.4 g/dL (3.3-5.0)
[2023-04-21 10:35] LABS: Chloride* 105 mmol/L (96-114); Potassium* 4.4 mmol/L (3.6-5.1); Sodium* 137 mmol/L (135-149)
[2023-04-21 10:37] LABS: Alkaline Phosphatase* 94 U/L (40-150); Anion Gap 6 mEq/L (7-15); Aspartate Amino Transferase* 25 U/L (12-35); Bilirubin Total* 0.7 mg/dL (0.1-1.5); Blood Urea Nitrogen* 41 mg/dL (7-30); Carbon Dioxide* 26 mmol/L (20-32); Creatinine* 1.8 mg/dL (0.5-1.5); Estimated Glomerular Filt Rate 38 ml/min; Total Protein* 6.8 g/dL (6.0-8.3)
[2023-04-21 10:38] LABS: Alanine Aminotransferase* 18 U/L (4-50); Calcium* 9.9 mg/dL (8.4-10.6); Glucose* 107 mg/dL (60-115); Lactate Dehydrogenase* 226 U/L (120-246)
[2023-04-21 10:47] LABS: White Blood Count* 29.78 K/uL (4.50-11.00)
[2023-04-22 13:44] LABS: Slide Review Reflex No
--- NOTE | 2023-05-17 10:28 | ONC.NURNOTE ---
Re: EKG patient saw Cardiology in Mar- further EKG schedule pending visit with Dr Jensen in Jun Cardiology note to be scanned into patients chart patient aware that he does not need EKG in May
[2023-06-22 10:11] LABS: Basophils Percent Auto 0.2 % (0.0-3.0); Eosinophils Percent Auto 1.1 % (0.0-7.0); Hematocrit 47.2 % (37.0-53.0); Hemoglobin* 15.3 gm/dL (13.5-17.5); Immature Granulocytes Pct Auto 0.3 %; Lymphocytes Percent Auto 62.2 % (20-44); Mean Corpuscular HGB Conc 32 gm/dL (32-36); Mean Corpuscular Hemoglobin 29 pg (26-34); Mean Corpuscular Volume 89 fL (80-100); Monocytes Percent Auto 3.7 % (0.0-11.0); Neutrophils Percent Auto 32.5 % (42.0-72.0); Platelet Count* 142 K/uL (140-440); Red Blood Count 5.33 m/uL (4.30-5.90); White Blood Count* 18.27 K/uL (4.50-11.00)
[2023-06-22 10:13] LABS: Slide Review Reflex Yes
[2023-06-22 10:24] LABS: Albumin* 4.7 g/dL (3.3-5.0); Chloride* 106 mmol/L (96-114); Sodium* 141 mmol/L (135-149)
[2023-06-22 10:25] LABS: Potassium* 4.3 mmol/L (3.6-5.1)
[2023-06-22 10:27] LABS: Alkaline Phosphatase* 89 U/L (40-150); Anion Gap 9 mEq/L (7-15); Aspartate Amino Transferase* 24 U/L (12-35); Bilirubin Total* 0.8 mg/dL (0.1-1.5); Blood Urea Nitrogen* 33 mg/dL (7-30); Carbon Dioxide* 26 mmol/L (20-32); Creatinine* 1.7 mg/dL (0.5-1.5); Estimated Glomerular Filt Rate 41 ml/min; Lactate Dehydrogenase* 221 U/L (120-246); Total Protein* 6.6 g/dL (6.0-8.3)
[2023-06-22 10:28] LABS: Alanine Aminotransferase* 19 U/L (4-50); Calcium* 9.9 mg/dL (8.4-10.6); Glucose* 105 mg/dL (60-115)
[2023-06-22 11:25] LABS: Slide Review Acceptable Review (Acceptable)
--- NOTE | 2023-06-22 11:50 | ONC.NURNOTE ---
lab results noted and called to Aj/ as stable with improved WBC sees Dr Jensen next week
[2023-06-25 16:23] LABS: Albumin 4.22 g/dL (3.75-5.01); Alpha 1 Globulin 0.32 g/dL (0.19-0.46); Alpha 2 Globulin 0.62 g/dL (0.48-1.05); Immunofixation IFE Done; Immunoglobulin A 20 mg/dL (68-408); Immunoglobulin G 246 mg/dL (768-1632); Immunoglobulin M 18 mg/dL (35-263); Kappa Qnt Free Light Chains 31.06 mg/L (3.30-19.40); Kappa/Lambda Light Chain Ratio 2.58 (0.26-1.65); Lambda Qnt Free Light Chains 12.03 mg/L (5.71-26.30); Total Protein, Serum 6.1 g/dL (6.3-8.2)
--- NOTE | 2023-06-27 08:52 | PM.EN ---
Documented by User: Tsering Marcos APRN 06/27/23 08:56 Chart Event Note Chart Event Note: EKG interpretation Mr. Moon completed EKG tracing 06/22/2023 in the [facility] for routine medicaition monitoring of Zanubritinib, with risk for QT/QTc prolongation or cardiac dysrhythmia. This therapy is prescribed for Mr. Moon for management of CLL. Documented by User: Luc Smith MD 06/27/23 09:43 EKG interpretations EKG EKG results cardiology: interpreted by INGRID WNKimani, sinus rhythm, normal axis, no acute changes and not changed from: (no appreciable change from 02/28/2023) EKG shows: sinus rhythm Blocks, axis, hypertrophy, ST abn Repolarization changes or abnormalities: Q-T interval prolongation (Mild increase in QTCbaz of 32 milliseconds)
--- NOTE | 2023-08-01 09:53 | ONC.NURNOTE ---
Addendum entered by Glenis Gilliam RN 08/01/23 13:29: called --patient did not remember instructions to hold brukinsa while on the antibiotics so he took this am dose informed to just hold it the following days of antibiotics but to continue with the antibiotics as directed- there is no direct drug -drug interaction per clinical pharm Original Note: Re:Brukinsa per Dr Au- patient was informed to continue to hold Brukinsa until he completes course of levofloxacin (5 day total) patient reports afeb, weakness, productive cough, cough has improved but continues to feel very fatigued- he has follow up with PCP - unsure of the date
[2023-08-25 10:00] VITALS: BP 153/76; PULSE 82; RESP 18; TEMP 37; O2SAT 94
[2023-08-25 10:08] LABS: Basophils Percent Auto 0.1 % (0.0-3.0); Eosinophils Percent Auto 1.6 % (0.0-7.0); Hematocrit 46.8 % (37.0-53.0); Hemoglobin* 15.1 gm/dL (13.5-17.5); Immature Granulocytes Pct Auto 0.5 %; Lymphocytes Percent Auto 55.3 % (20-44); Mean Corpuscular HGB Conc 32 gm/dL (32-36); Mean Corpuscular Hemoglobin 28 pg (26-34); Mean Corpuscular Volume 87 fL (80-100); Monocytes Percent Auto 4.3 % (0.0-11.0); Neutrophils Percent Auto 38.2 % (42.0-72.0); Platelet Count* 123 K/uL (140-440); RDW Coefficient of Variation % 14.1 % (11.5-15.5); Red Blood Count 5.37 m/uL (4.30-5.90); White Blood Count* 11.17 K/uL (4.50-11.00)
[2023-08-25 10:15] LABS: Slide Review Reflex No
[2023-08-25 10:23] LABS: Albumin* 4.3 g/dL (3.3-5.0); Chloride* 105 mmol/L (96-114)
[2023-08-25 10:24] LABS: Potassium* 4.4 mmol/L (3.6-5.1); Sodium* 137 mmol/L (135-149)
[2023-08-25 10:26] LABS: Anion Gap 7 mEq/L (7-15); Aspartate Amino Transferase* 20 U/L (12-35); Bilirubin Total* 0.7 mg/dL (0.1-1.5); Carbon Dioxide* 25 mmol/L (20-32); Creatinine* 1.5 mg/dL (0.5-1.5); Estimated Glomerular Filt Rate 47 ml/min; Total Protein* 6.7 g/dL (6.0-8.3)
[2023-08-25 10:27] LABS: Alanine Aminotransferase* 18 U/L (4-50); Alkaline Phosphatase* 105 U/L (40-150); Blood Urea Nitrogen* 31 mg/dL (7-30); Calcium* 10.2 mg/dL (8.4-10.6); Glucose* 134 mg/dL (60-115)
== END 2023-09-17 23:59 | disposition home or self-care (01) ==
LOC: CCIC 13:00
PROVIDERS: PCP Family Medicine; Referring Provider Family Medicine; Visit Provider Internal Medicine Hematology & Oncology
DX: C91.10 Chronic lymphocytic leukemia of B-cell type not having achieved remission (principal); R05.9 Cough, unspecified
CPT/HCPCS: 36415; 80053; 82784; 83520; 83615; 84155; 84165; 85025; 86334; 99212; 99213; 99214; 99215; G0463

== ENCOUNTER 2024-03-06 13:00 | Outpatient (RCR) | payer MEDICARE, BC, SELFPAY ==
--- NOTE | 2023-11-02 13:07 | ONC.NURNOTE ---
Application for re-enrollment to the leukemia and lymphoma society copay assistance was signed by Tsering Marcos and faxed to the [facility] [phone]
[2023-11-14 09:18] LABS: Basophils Absolute Auto 0.02 K/uL (0.00-0.30); Basophils Percent Auto 0.2 % (0.0-3.0); Eosinophils Absolute Auto 0.15 K/uL (0.00-0.50); Eosinophils Percent Auto 1.6 % (0.0-7.0); Hematocrit 47.9 % (37.0-53.0); Hemoglobin* 15.5 gm/dL (13.5-17.5); Immature Granulocytes Abs Auto 0.05 K/uL (0.00-0.30); Immature Granulocytes Pct Auto 0.5 %; Lymphocytes Absolute Auto 3.45 K/uL (0.90-2.90); Lymphocytes Percent Auto 36.6 % (20-44); Mean Corpuscular HGB Conc 32 gm/dL (32-36); Mean Corpuscular Hemoglobin 28 pg (26-34); Mean Corpuscular Volume 87 fL (80-100); Monocytes Percent Auto 6.9 % (0.0-11.0); Neutrophils Absolute Auto 5.11 K/uL (1.7-7.0); Neutrophils Percent Auto 54.2 % (42.0-72.0); Platelet Count* 142 K/uL (140-440); RDW Coefficient of Variation % 13.9 % (11.5-15.5); Red Blood Count 5.51 m/uL (4.30-5.90); White Blood Count* 9.43 K/uL (4.50-11.00)
[2023-11-14 09:26] LABS: Slide Review Reflex No
[2023-11-14 09:31] LABS: Chloride* 105 mmol/L (96-114); Sodium* 138 mmol/L (135-149)
[2023-11-14 09:34] LABS: Alanine Aminotransferase* 19 U/L (4-50); Alkaline Phosphatase* 111 U/L (40-150); Anion Gap 8 mEq/L (7-15); Aspartate Amino Transferase* 25 U/L (12-35); Blood Urea Nitrogen* 30 mg/dL (7-30); Calcium* 10.2 mg/dL (8.4-10.6); Carbon Dioxide* 25 mmol/L (20-32); Creatinine* 1.6 mg/dL (0.5-1.5); Estimated Glomerular Filt Rate 43 ml/min; Glucose* 96 mg/dL (60-115); Lactate Dehydrogenase* 230 U/L (120-246)
--- NOTE | 2023-11-14 10:58 | ONC.NURNOTE ---
Lab results reviewed by RN and called to patient as stable noted that he is due for Q 4 mth EKG monitoring- appt set for for next week per patients availability RTC mid November
--- NOTE | 2023-11-21 11:56 | W.ED.EKGINT ---
EKG Interpretation EKG Data Attestation: I personally reviewed and interpreted this ECG as follows: Date of EKG Tracin11/21/23 EKG interpretation date: 11/21/23 Prior EKG tracings: available for review Interpretation: EKG interpretation is done for the indication of chemotherapeutic monitoring. EKG shows normal sinus rhythm with occasional PVCs, ventricular rate is 66, QRS is normal at 86 milliseconds, QT interval is 402 milliseconds, QTC is 421 milliseconds. In comparison to previous EKG from 06/22/2023. QT slightly lengthened from 378, QTC improved from 433. Assessment: Sinus rhythm with occasional PVCs, no acute changes QT noted above
--- NOTE | 2024-02-01 09:27 | ONC.NURNOTE ---
Aj was reenrolled in L[employer] librado in October 2023 thru [facility] for copay coverage for Zanubrutinib no claims have been submitted for copay coverage and and patient contacted this music writer with questions regarding this According to [employer]- Aj met his max copay out of pocket coverage in Jun for 2023 and there is no further copay- the librado will be canceled since it is no longer needed in May [facility] will look for a librado to cover the $2000 max out of pocket for 2024 if patient is still financially eligible for a librado
[2024-02-26 10:23] LABS: Basophils Absolute Auto 0.02 K/uL (0.00-0.30); Basophils Percent Auto 0.3 % (0.0-3.0); Eosinophils Absolute Auto 0.16 K/uL (0.00-0.50); Hematocrit 47.9 % (37.0-53.0); Hemoglobin* 15.8 gm/dL (13.5-17.5); Immature Granulocytes Abs Auto 0.03 K/uL (0.00-0.30); Immature Granulocytes Pct Auto 0.4 %; Lymphocytes Absolute Auto 2.49 K/uL (0.90-2.90); Lymphocytes Percent Auto 31.2 % (20-44); Mean Corpuscular HGB Conc 33 gm/dL (32-36); Mean Corpuscular Hemoglobin 29 pg (26-34); Mean Corpuscular Volume 87 fL (80-100); Monocytes Percent Auto 7.4 % (0.0-11.0); Neutrophils Absolute Auto 4.68 K/uL (1.7-7.0); Neutrophils Percent Auto 58.7 % (42.0-72.0); Platelet Count* 125 K/uL (140-440); RDW Coefficient of Variation % 13.9 % (11.5-15.5); Red Blood Count 5.51 m/uL (4.30-5.90); White Blood Count* 7.97 K/uL (4.50-11.00)
[2024-02-26 10:30] LABS: Slide Review Reflex No
[2024-02-26 10:41] LABS: Albumin* 4.8 g/dL (3.3-5.0); Chloride* 106 mmol/L (96-114); Sodium* 138 mmol/L (135-149)
[2024-02-26 10:44] LABS: Alkaline Phosphatase* 103 U/L (40-150); Anion Gap 10 mEq/L (7-15); Aspartate Amino Transferase* 29 U/L (12-35); Bilirubin Total* 0.7 mg/dL (0.1-1.5); Blood Urea Nitrogen* 44 mg/dL (7-30); Carbon Dioxide* 22 mmol/L (20-32); Creatinine* 1.7 mg/dL (0.5-1.5); Estimated Glomerular Filt Rate 40 ml/min; Lactate Dehydrogenase* 245 U/L (120-246); Total Protein* 6.6 g/dL (6.0-8.3)
[2024-02-26 10:45] LABS: Alanine Aminotransferase* 22 U/L (4-50); Glucose* 85 mg/dL (60-115)
--- NOTE | 2024-02-26 13:52 | ONC.NURNOTE ---
Lab results reviewed by law writer and called to Aj and stable sees Dr Jensen in follow up next week
[2024-02-29 00:40] LABS: Albumin 4.22 g/dL (3.75-5.01); Alpha 1 Globulin 0.34 g/dL (0.19-0.46); Alpha 2 Globulin 0.63 g/dL (0.48-1.05); Immunofixation IFE Done; Immunoglobulin A 16 mg/dL (68-408); Immunoglobulin G 231 mg/dL (768-1632); Immunoglobulin M 15 mg/dL (35-263); Kappa Qnt Free Light Chains 22.91 mg/L (3.30-19.40); Kappa/Lambda Light Chain Ratio 1.75 (0.26-1.65); Lambda Qnt Free Light Chains 13.07 mg/L (5.71-26.30); Total Protein, Serum 6.1 g/dL (6.3-8.2)
== END 2024-05-12 23:59 | disposition home or self-care (01) ==
LOC: CCIC 13:00
PROVIDERS: PCP Family Medicine; Referring Provider Family Medicine; Visit Provider Internal Medicine Hematology & Oncology
DX: C91.10 Chronic lymphocytic leukemia of B-cell type not having achieved remission (principal); R05.9 Cough, unspecified; R78.89 Finding of other specified substances, not normally found in blood
CPT/HCPCS: 36415; 80053; 82784; 83520; 83615; 84155; 84165; 85025; 86334; 93005; 93010; 99214; G0463

== ENCOUNTER 2024-09-02 10:00 | Outpatient (RCR) | payer MEDICARE, BC, SELFPAY ==
[2024-05-28 10:25] LABS: Hematocrit 47.8 % (37.0-53.0); Hemoglobin* 15.8 gm/dL (13.5-17.5); Immature Granulocytes Abs Auto 0.10 K/uL (0.00-0.30); Immature Granulocytes Pct Auto 1.4 %; Lymphocytes Absolute Auto 2.21 K/uL (0.90-2.90); Mean Corpuscular HGB Conc 33 gm/dL (32-36); Mean Corpuscular Hemoglobin 29 pg (26-34); Mean Corpuscular Volume 87 fL (80-100); RDW Coefficient of Variation % 13.7 % (11.5-15.5); Red Blood Count 5.51 m/uL (4.30-5.90); White Blood Count* 7.34 K/uL (4.50-11.00)
[2024-05-28 10:34] LABS: Slide Review Reflex No
[2024-05-28 10:35] LABS: Albumin* 4.2 g/dL (3.3-5.0); Chloride* 107 mmol/L (96-114); Potassium* 4.0 mmol/L (3.6-5.1); Sodium* 138 mmol/L (135-149)
[2024-05-28 10:37] LABS: Creatinine* 1.7 mg/dL (0.5-1.5); Estimated Glomerular Filt Rate 40 ml/min
[2024-05-28 10:38] LABS: Alanine Aminotransferase* 16 U/L (4-50); Alkaline Phosphatase* 90 U/L (40-150); Anion Gap 8 mEq/L (7-15); Aspartate Amino Transferase* 16 U/L (12-35); Bilirubin Total* 0.8 mg/dL (0.1-1.5); Blood Urea Nitrogen* 33 mg/dL (7-30); Calcium* 9.5 mg/dL (8.4-10.6); Carbon Dioxide* 23 mmol/L (20-32); Glucose* 115 mg/dL (60-115); Total Protein* 6.1 g/dL (6.0-8.3)
--- NOTE | 2024-06-18 10:06 | W.ED.EKGINT ---
EKG Interpretation EKG Data Attestation: I personally reviewed and interpreted this ECG as follows: Date of EKG Tracin06/05/24 EKG interpretation date: 06/18/24 Prior EKG tracings: available for review Interpretation: EKG review is done for the indication of chemotherapeutic monitoring. Old EKG from 11/21/2023, sinus rhythm with occasional PVCs in ventricular bigeminy pattern is noted. Ventricular rate is 68. Left axis deviation, QRS is 106 milliseconds, which is slightly increased from previous. His QT 406 milliseconds, and QTC is 431 milliseconds. Left axis deviation is more pronounced but this may be reflection from bigeminal pattern. Assessment: Abnormal EKG with new bigeminal pattern, of the PVCs.
[2024-08-26 09:23] LABS: Hematocrit 49.7 % (37.0-53.0); Hemoglobin* 16.7 gm/dL (13.5-17.5); Immature Granulocytes Abs Auto 0.05 K/uL (0.00-0.30); Immature Granulocytes Pct Auto 0.6 %; Lymphocytes Absolute Auto 1.98 K/uL (0.90-2.90); Mean Corpuscular HGB Conc 34 gm/dL (32-36); Mean Corpuscular Hemoglobin 29 pg (26-34); Mean Corpuscular Volume 86 fL (80-100); RDW Coefficient of Variation % 13.6 % (11.5-15.5); Red Blood Count 5.77 m/uL (4.30-5.90); White Blood Count* 8.59 K/uL (4.50-11.00)
[2024-08-26 09:28] LABS: Slide Review Reflex No
[2024-08-26 09:41] LABS: Albumin* 4.5 g/dL (3.3-5.0); Chloride* 103 mmol/L (96-114); Potassium* 4.4 mmol/L (3.6-5.1); Sodium* 136 mmol/L (135-149)
[2024-08-26 09:43] LABS: Alanine Aminotransferase* 16 U/L (4-50); Anion Gap 7 mEq/L (7-15); Aspartate Amino Transferase* 24 U/L (12-35); Blood Urea Nitrogen* 30 mg/dL (7-30); Carbon Dioxide* 26 mmol/L (20-32); Creatinine* 1.7 mg/dL (0.5-1.5); Est. Creatinine Clearance* 36.91; Estimated Glomerular Filt Rate 40 ml/min
[2024-08-26 09:44] LABS: Alkaline Phosphatase* 101 U/L (40-150); Bilirubin Total* 1.0 mg/dL (0.1-1.5); Calcium* 9.9 mg/dL (8.4-10.6); Glucose* 90 mg/dL (60-115); Total Protein* 6.4 g/dL (6.0-8.3)
== END 2024-11-24 23:59 | disposition home or self-care (01) ==
LOC: CCIC 10:00
PROVIDERS: PCP Family Medicine; Referring Provider Family Medicine; Visit Provider Internal Medicine Hematology & Oncology
DX: C91.10 Chronic lymphocytic leukemia of B-cell type not having achieved remission (principal); R05.9 Cough, unspecified; R78.89 Finding of other specified substances, not normally found in blood
CPT/HCPCS: 36415; 80053; 83615; 85025; 93005; 93010; 99211; 99214; G0463